=== PATIENT | male | born 1950 | race Caucasian/White ===

== ENCOUNTER → 2016-09-22 | Day surgery (SDC) | payer MEDICARE, BC ==
[~2016-09-22] MED LIST: ALLEGRA ALLERG180 MG PO; ASPIRIN81 M1 PO; BACTRIM DS TABL1 TA1 PO; CRESTOR PO; DOXYCYCLINE150 MG PO; LIPITOR; LISINOPRIL; LISINOPRIL20 MG PO; LOVAZA1 GM; NASONEX17 GM; NEXIUM40 M1; TAGAMET; TYLOX 5/500 CAP1 CAP; VICODIN 5/1 TAB 5/50 PO; ZYRTEC
--- NOTE | ~2016-09-22 | OR ---
Unit #: [id number] #: [id number] Patient: MILY MARCUM [id number] [address] [place], [place] [address] [id number] MR#: [id number] NAME: MILY MARCUM ROOM: Date of Procedure: 09/22/2016 Admission Date: 09/22/2016 Surgeon: Jefferson Valentin Jr., M.D. : 1950 Attending Physician: Jefferson Valentin Jr., M.D. Primary Care Physician: Tan Rowe M.D. OPERATIVE REPORT INDICATIONS FOR PROCEDURE The patient is a 66-year-old white male who presents desiring screening colonoscopy. He had a previous colonoscopy many years ago, probably over 10. He has had no change in bowel habits and no rectal bleeding. He is here at his request for this procedure. He understands the procedure including the risks, including that of perforation and bleeding, and consents. PREOPERATIVE DIAGNOSIS Desired screening colonoscopy, rule out pathology. POSTOPERATIVE DIAGNOSIS One small 1 mm polyp at the rectum, otherwise normal colonoscopy to the distal ileum. ANESTHESIA MAC anesthesia. PROCEDURES PERFORMED Flexible colonoscopy to the distal ileum with biopsies of small polyp at the rectum. DESCRIPTION OF PROCEDURE The patient was positioned in Gaffney position with left side down. After being given MAC anesthesia, digital rectal examination was performed, which revealed no palpable mass or tenderness. No blood or stool in the rectal ampulla. Prostate was normal by palpation. The Olympus colonoscope was advanced through the anal canal up the rectum and retroflexed down to the area of the anorectal region. There was no evidence of any fissures. No significant internal hemorrhoids. Prostate was normal by palpation. The Olympus colonoscope was advanced in the anal canal up in the rectum and at approximately 8 cm, there was a small adenomatous benign-appearing polyp. This was removed with 2 bites with the cold biopsy forceps. It was approximately 1 to 2 mm in diameter. There was no evidence of any bleeding from the biopsy site. The scope was then advanced up in the rectosigmoid and retroflexed down to the area of the anorectal region. There was no evidence of any fissures. No significant internal hemorrhoids. The scope was then straightened and advanced up the rectosigmoid, in the sigmoid and descending colon areas, around the splenic flexure and the transverse colon, around hepatic flexure and ascending colon, down the area of the cecum. The light pipe of the scope could be seen transilluminating through right lower quadrant Unit #: [id number] #: [id number] Patient: MILY MARCUM [place] abdominal wall area. The scope was advanced up the distal ileum approximately 10 to 12 inches. There was no evidence of any ileitis or inflammatory bowel disease. The scope was slowly removed. There were no tumors, no polyps, except for the one in the rectum, no cancer, no AVMs, no evidence any colitis, diverticulosis or diverticulitis. The caliber of the colon appeared normal throughout without evidence of narrowing or obstruction. The scope was removed. The patient tolerated the procedure well and discharged in satisfactory condition. Dictated by... Jefferson Valentin Jr., M.Felicity SIMMONS/maxine TD: 09/22/2016 10:41 JOB #: [id number] OPERATIVE REPORT Page 1 of 1 X Jefferson Valentin MD X PROCEDURE OPERATIVE NOTE
== END | disposition home or self-care (01) ==
LOC: COPS 05:42
DX: Z12.11 Encounter for screening for malignant neoplasm of colon (principal); K62.1 Rectal polyp; K21.9 Gastro-esophageal reflux disease without esophagitis; I10 Essential (primary) hypertension; E78.5 Hyperlipidemia, unspecified; Z88.8 Allergy status to other drugs, medicaments and biological substances; Z79.82 Long term (current) use of aspirin; Z79.899 Other long term (current) drug therapy; Z90.49 Acquired absence of other specified parts of digestive tract; Z96.652 Presence of left artificial knee joint; Z98.890 Other specified postprocedural states
CPT/HCPCS: 88305